=== PATIENT | male | born 1980 | race Caucasian/White ===

== ENCOUNTER → 2018-12-01 | Outpatient (CLI) | payer OTHER ==
[~2018-12-01] MED LIST: GADOBUTROL 10 MMOL/10 ML VIAL IV ONE
--- NOTE | 2018-12-01 15:00 | KCIC ---
MRI of the Brain/IACs without and with contrast 12/01/2018 Clinical History: Hearing loss, left greater than right. Technique: Unenhanced T1-weighted sagittal and axial and FLAIR, T2-weighted, gradient echo and diffusion-weighted axial images of the brain were obtained. Thin section T1-weighted coronal and T2-weighted axial and coronal images through the IACs were obtained. After the intravenous administration of 8 cc of Gadavist, enhanced T1-weighted axial and coronal images of the brain were obtained. Additionally enhanced thin section T1-weighted axial and coronal images through the IACs were obtained. Findings: No previous imaging studies are available for comparison The ventricles are within normal limits in size and configuration. The cerebellar tonsils project 5 mm below the foramen magnum consistent with a borderline Chiari I malformation. No syrinx is seen within the visualized portions of the cervical spinal cord. No area of significant abnormal signal intensity is seen involving the brain parenchyma. Incidental note is made of small venous angiomas involving the left cerebral hemisphere and the left frontal lobe. These measure 1 to 1.5 cm in size. No area of significant abnormal contrast enhancement is noted. No extra-axial fluid collection is seen. There is no MRI evidence of acute ischemia/infarction. MRI images through the IACs are within normal limits. No abnormal soft tissue mass or area of abnormal contrast enhancement is seen. Mild to moderate diffuse thickening is seen throughout the paranasal sinuses. Normal flow voids are seen within the major vascular structures surrounding the brain parenchyma. Normal flow voids are seen within the major vascular structures surrounding the brain parenchyma. Impression: 1. No acute parenchymal abnormality is seen. 2. Negative MRI of the IACs. Electronically signed by: Santino Mohan MD (12/01/2018 2:57 PM) [id number]
== END | disposition home or self-care (01) ==
LOC: KCIC MRI 12:39
DX: H90.3 Sensorineural hearing loss, bilateral (principal)
CPT/HCPCS: 70553; A9585